=== PATIENT | male | born 1950 | race Caucasian/White ===

== ENCOUNTER → 2018-06-01 12:44 | Outpatient (CLI) | payer OTHER, SELFPAY ==
--- NOTE | 2018-06-01 | DI.RAD.S_ITS ---
PROCEDURE: XR HAND RT MIN 3V INDICATIONS: CELLULITIS OF RIGHT FINGER TECHNIQUE: 3 views of the hand(s) acquired. COMPARISON: None. FINDINGS: Bones: No fractures or dislocations. Carpal bones are normally aligned. No suspicious bony lesions. Soft tissues: No suspicious soft tissue calcifications. No soft tissue foreign body. IMPRESSION: No bony abnormalities. If clinical symptoms persist or clinical suspicion for osteomyelitis is high, a triple phase bone scan or MRI with and without contrast is suggested for further evaluation. Dictated by: Derrek Hernandez M.D. on 06/01/2018 at 16:45 Approved by: Derrek Hernandez M.D. on 06/01/2018 at 16:47
== END ==
PROVIDERS: Visit Provider Family Medicine
DX: L03.011 Cellulitis of right finger (principal)
CPT/HCPCS: 73130